=== PATIENT | male | born 1965 | race Caucasian/White ===

== ENCOUNTER 2020-01-03 19:56 | Emergency (ER) | payer BC ==
[2020-01-03] MEDS ORDERED: Ketorolac Tromethamine 60 MG/2 ML VIAL ONE (20:34)
== END 2020-01-03 20:57 | disposition home or self-care (01) ==
LOC: MADERS 19:56
DX: S39.012A Strain of muscle, fascia and tendon of lower back, initial encounter (principal); E78.5 Hyperlipidemia, unspecified; Z79.899 Other long term (current) drug therapy; V53.5XXA Driver of pick-up truck or van injured in collision with car, pick-up truck or van in traffic accident, initial encounter
CPT/HCPCS: 96372; 99283; J1885